=== PATIENT | female | born 1960 | race Caucasian/White ===

== ENCOUNTER 2018-09-09 13:04 | Emergency (ER) | payer SELFPAY ==
[~2018-09-09] VITALS: Ht 165.1 cm; Wt 50.0 kg
[2018-09-09] MEDS ORDERED: VENL25TA47 PO (13:11)
[2018-09-09] MEDS ORDERED: PANT40TA25 PO (13:11)
[2018-09-09 15:47] LABS: BASOPHILS % (AUTO) 0.8 % (0.0-2.0); EOSINOPHILS % (AUTO) 0.3 % (1.0-6.0); HEMATOCRIT 38.3 % (36-46); HEMOGLOBIN 12.6 g/dL (12.0-16.0); LYMPHOCYTES # (AUTO) 1.8 K/uL (1.0-4.8); LYMPHOCYTES % (AUTO) 22.8 % (22.0-44.0); MEAN CORPUSCULAR HEMOGLOBIN 27.6 pg (26.0-34.0); MEAN CORPUSCULAR VOLUME 84 fL (80-100); MONOCYTES # (AUTO) 0.6 K/uL (0.1-1.0); MONOCYTES % (AUTO) 7.3 % (2.0-9.0); NEUTROPHILS # (AUTO) 5.3 K/uL (1.8-7.7); NEUTROPHILS % (AUTO) 68.8 % (40.0-70.0); PLATELET COUNT (AUTO) 473 K/uL (150-450); RED BLOOD CELL COUNT(AUTO) 4.58 MIL/uL (4.00-5.20); RED CELL DISTRIBUTION WIDTH 15.3 % (11.5-14.5)
[2018-09-09 15:56] LABS: ANION GAP 11 mmol/L (8-16); CALCIUM, TOTAL 9.4 mg/dL (8.8-10.5); CARBON DIOXIDE 27 mmol/L (22-29); CHLORIDE 95 mmol/L (98-107); GLOMERULAR FILTR. RATE CALC > 60 mL/min (>60); GLUCOSE,RANDOM 67 mg/dL (70-110); POTASSIUM 3.9 mmol/L (3.5-5.1); SODIUM SERUM 133 mmol/L (136-145); UREA NITROGEN, BLOOD 15 mg/dL (7-18)
[2018-09-09] MEDS ORDERED: FentaNYL CITRATE-PF 100 MCG/2 ML VIAL IVP ONE ×2 (16:00→17:30)
[2018-09-09] MEDS ORDERED: PANTOPRAZOLE SODIUM 40 MG/VIAL IVP ONE (16:00)
[2018-09-09] MEDS ORDERED: SODIUM CHLORIDE 0.9% 1,000 ML IV ONE (16:00)
[2018-09-09] MEDS ORDERED: ONDANSETRON HCL 4 MG/2 ML VIAL IVP ONE (16:00)
[2018-09-09 16:02] LABS: INR 0.9 (0.9-1.1); PROTHROMBIN TIME 9.6 SEC (9.4-11.6)
[2018-09-09 16:22] LABS: ALANINE AMINOTRANSFERASE 37 U/L (12-78); ALKALINE PHOSPHATASE 142 U/L (46-116); ASPARTATE AMINOTRANSFERASE 59 U/L (15-37); CREATINE KINASE, TOTAL ONLY 99 U/L (26-192); LIPASE 138 U/L (73-393); TOTAL PROTEIN, SERUM 7.9 g/dL (6.4-8.2)
[2018-09-09 16:26] LABS: B-TYPE NATRIURETIC PEPTIDE 20 pg/mL (0-100)
[2018-09-09 19:30] VITALS: BP 148/74
== END 2018-09-09 19:59 | disposition home or self-care (01) ==
LOC: EMS 13:08
DX: K29.70 Gastritis, unspecified, without bleeding (principal)
CPT/HCPCS: 71045; 74176; 80053; 82550; 83690; 83880; 84484; 85025; 85610; 85730; 93005; 96361; 96374; 96375; 96376; 99285; C9113; J2405; J3010; J7030